=== PATIENT | male | born 1980 | race Caucasian/White ===

== ENCOUNTER 2021-04-13 07:52 | Emergency (ER) | payer SELFPAY ==
[2021-04-13] MEDS ORDERED: Metoclopramide HCl 10 MG/2 ML VIAL ONE (09:30)
[2021-04-13] MEDS ORDERED: Ketorolac Tromethamine 30 MG/ML VIAL ONE (09:30)
[2021-04-13] MEDS ORDERED: diphenhydrAMINE 50 MG/ML VIAL ONE (09:30)
[2021-04-13] MEDS ORDERED: Dexamethasone 10 MG/ML VIAL ONE (09:30)
[2021-04-13 09:40] LABS: Hemoglobin 15.9 g/dL (14.0-18.0); Mean Corpuscular HGB CONC 31.7 g/dL (32.0-36.0); Mean Corpuscular Hemoglobin 29.4 pg (27.0-31.0); Mean Corpuscular Volume 92.7 fL (78.0-98.0); Mean Platelet Volume 8.4 fL (7.4-10.4); Platelet Count 196 thou/uL (130-400); RBC Distribution Width 11.8 % (11.5-14.5); Red Blood Cell (RBC) Count 5.41 mill/uL (4.70-6.10)
[2021-04-13 09:47] LABS: ALT (SGPT) 27 U/L (8-55); AST (SGOT) 23 U/L (5-34); Albumin 4.3 g/dL (3.5-5.0); Alkaline Phosphatase 124 U/L (40-110); Anion Gap 13 mmol/L (10-20); BUN (Urea Nitrogen) 9 mg/dL (8.9-20.6); Bilirubin, Total 0.7 mg/dL (0.2-1.2); Calc. Creatinine Clearance 0 mL/min (70-130); Calcium 8.9 mg/dL (7.8-10.44); Carbon Dioxide 23 mmol/L (22-29); Chloride 107 mmol/L (98-107); Globulin 3.1 g/dL (2.4-3.5); Glucose 100 mg/dL (70-105); Protein, Total 7.4 g/dL (6.0-8.3); Sodium 139 mmol/L (136-145)
[2021-04-13 09:50] LABS: Band 3 % (5-11); Lymphocytes 17 % (21-51); MDiff Complete? YES; Manual Diff?? YES; Neutrophil 72 % (42-75)
[2021-04-13 09:51] LABS: Eosinophils 1 % (0-10); Monocytes 7 % (0-10); Platelet Morphology Comment Appears Adequate; RBC Morphology Normal
[2021-04-13] MEDS ORDERED: Sodium Chloride 0.9% 1,000 ML ONE (10:55)
== END 2021-04-13 11:05 | disposition home or self-care (01) ==
LOC: MADERS 07:52
DX: G43.909 Migraine, unspecified, not intractable, without status migrainosus (principal); J06.9 Acute upper respiratory infection, unspecified; F17.220 Nicotine dependence, chewing tobacco, uncomplicated
CPT/HCPCS: 71045; 80053; 85025; 96374; 96375; J1100; J1200; J1885; J2765; J7050

== ENCOUNTER 2021-10-03 14:04 | Emergency (ER) | payer SELFPAY ==
[2021-10-03] MEDS ORDERED: Loratadine 10 MG TAB ONE (15:30)
== END 2021-10-03 15:34 | disposition home or self-care (01) ==
LOC: MADERS 14:04
DX: T63.461A Toxic effect of venom of wasps, accidental (unintentional), initial encounter (principal); F17.210 Nicotine dependence, cigarettes, uncomplicated; F17.220 Nicotine dependence, chewing tobacco, uncomplicated
CPT/HCPCS: 99282

== ENCOUNTER 2023-05-16 21:08 | Emergency (ER) | payer SELFPAY ==
[2023-05-16] MEDS ORDERED: Dexamethasone 10 MG/ML VIAL ONE (22:06)
== END 2023-05-16 22:09 | disposition home or self-care (01) ==
LOC: MADERS 21:08
DX: M54.42 Lumbago with sciatica, left side (principal); F17.210 Nicotine dependence, cigarettes, uncomplicated; F17.220 Nicotine dependence, chewing tobacco, uncomplicated
CPT/HCPCS: 96372; 99283; J1100

== ENCOUNTER 2023-08-14 14:28 | Emergency (ER) | payer BC, SELFPAY ==
[2023-08-14] MEDS ORDERED: Acetaminophen 500 MG TAB ONE (15:03)
[2023-08-14] MEDS ORDERED: Ibuprofen 600 MG TAB ONE (15:03)
[2023-08-14] MEDS ORDERED: Ibuprofen 200 MG TAB ONE (15:07)
[2023-08-14 15:47] LABS: Influenza A by NAA Not Detected (NotDetected); Influenza B by NAA Not Detected (NotDetected); SARS-CoV-2 NAA Rapid Test Not Detected (NotDetected)
== END 2023-08-14 16:05 | disposition home or self-care (01) ==
LOC: MADERS 14:28
DX: J06.9 Acute upper respiratory infection, unspecified (principal); F17.210 Nicotine dependence, cigarettes, uncomplicated
CPT/HCPCS: 71046

== ENCOUNTER 2024-12-30 00:20 | Emergency (ER) | payer SELFPAY ==
[2024-12-30 00:51] LABS: #Basophils 0.1 thou/uL (0.0-0.2); #Eosinophils 0.2 thou/uL (0.0-0.7); #Lymphocytes 3.0 thou/uL (1.20-3.40); #Monocytes 0.5 thou/uL (0.11-0.59); #Neutrophils 5.6 thou/uL (1.40-6.50); %Basophils 1.2 % (0.0-1.0); %Eosinophils 2.5 % (0.0-10.0); %Lymphocytes 31.9 % (21.0-51.0); %Monocytes 5.1 % (0.0-10.0); %Neutrophils 59.2 % (42.0-75.0); Hematocrit 47.2 % (42.0-52.0); Hemoglobin 14.9 g/dL (14.0-18.0); Mean Corpuscular Hemoglobin 29.2 pg (27.0-31.0); Mean Corpuscular Volume 92.2 fl (78.0-98.0); Platelet Count 222 10x3/uL (130-400); Red Blood Cell (RBC) Count 5.11 mill/uL (4.70-6.10); White Blood Cell (WBC) Count 9.5 10x3/uL (4.8-10.8)
[2024-12-30] MEDS ORDERED: Mag-Al 1200 mg/1200 mg/30 ML UDCUP ONE (00:53)
[2024-12-30] MEDS ORDERED: Lidocaine Viscous Sol 2% 15 ml UD Cup ONE (00:53)
[2024-12-30] MEDS ORDERED: Famotidine/PF 20 mg/2ml Vial ONE (00:53)
[2024-12-30 01:08] LABS: ALT (SGPT) 35 U/L (Less than 45); AST (SGOT) 37 U/L (11-34); Albumin 4.2 g/dL (3.1-4.5); Alkaline Phosphatase 106 U/L (40-110); Anion Gap 18 mmol/L (10-20); BUN (Urea Nitrogen) 14 mg/dL (8.9-20.6); Bilirubin, Total 0.3 mg/dL (0.3-1.2); Calc. Creatinine Clearance 0 mL/min (70-130); Calcium 8.9 mg/dL (7.8-10.44); Carbon Dioxide 21 mmol/L (22-29); Chloride 108 mmol/L (98-107); Globulin 3.2 g/dL (2.4-3.5); Glucose 109 mg/dL (70-105); Lipase 33 U/L (8-78); Potassium 4.5 mmol/L (3.5-5.1); Sodium 142 mmol/L (136-145)
[2024-12-30 01:09] LABS: Troponin I Less than 0.010 ng/mL (< 0.028)
[2024-12-30 03:01] LABS: Troponin I Less than 0.010 ng/mL (< 0.028)
== END 2024-12-30 03:39 | disposition home or self-care (01) ==
LOC: MADERS 00:20
DX: R07.89 Other chest pain (principal); R11.2 Nausea with vomiting, unspecified; F17.210 Nicotine dependence, cigarettes, uncomplicated; F17.220 Nicotine dependence, chewing tobacco, uncomplicated
CPT/HCPCS: 71045; 80053; 83690; 83880; 84484; 85025; 93005; 94760; 96374; J1308